=== PATIENT | male | born 1950 | race Caucasian/White ===

== ENCOUNTER 2023-07-21 16:02 | Outpatient (AMB) | payer BC, SELFPAY ==
--- NOTE | 2023-07-21 16:04 | AM.OFFWIN_ITS ---
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) Intake Note: pt is here for c.o body aches, fatigue Patient Tobacco Use Status: Never used Tobacco Allergies amoxicillin [From Augmentin] Allergy (Mild, Verified 07/21/23 16:26) Rash azithromycin Allergy (Mild, Verified 07/21/23 16:26) Rash clavulanic acid [From Augmentin] Allergy (Mild, Verified 07/21/23 16:26) Rash Medication List - Last Reconciled 07/21/23 by Arya Bright MD apixaban (Eliquis) 5 mg PO BID metoprolol succinate ER 25 mg PO DAILY rosuvastatin 10 mg PO BEDTIME Do you need a note to return to daycare/school/sports/work: No 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 Patient is requesting a Covid test. For the past week, he is feeling tired. Lives alone. 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 Does not have any home covid tests and would like to get tested. PFSH Social History Patient Tobacco Use Status: Never used Tobacco Physical Exam Vital Signs: Last Vital Signs Temp 98.4 F 07/21/23 16:11 Pulse 80 07/21/23 16:11 BP 104/62 07/21/23 16:11 Pulse Ox 100 07/21/23 16:11 Oxygen Delivery Method Room Air 07/21/23 16:11 BMI result Body Mass Index 24.0 Const General: cooperative and healthy appearing Nutritional Appearance: well nourished Orientation/consciousness: patient oriented x3 Limitations: no limitations HEENT Head: Yes normal to inspection Eyes General: appearance normal, both eyes and all related structures Neck Neck: Yes normal visual inspection Chest Chest palpation & inspection: normal palpation of entire chest wall Resp Effort & Inspection: normal respiratory effort Neuro General: patient oriented x3 Assessment & Plan Assessment & Plan (1) Upper respiratory tract infection: Code(s): J06.9 - Acute upper respiratory infection, unspecified Plan: No antibiotics needed. Covid testing done as per patients request. Encouraged him to follow up with his PCP. Orders: Orders SARS-CoV2/FLU/RSV Today R43.9 - Unspecified disturbances of smell and taste Coding Level of Care Code New Pt Level 3 (75583) Diagnoses Upper respiratory tract infection J06.9
[2023-07-21 16:11] VITALS: BP 104/62; PULSE 80; TEMP 36.9; O2SAT 100; BMI 24.0
== END 2023-07-21 16:44 | disposition home or self-care (01) ==
PROVIDERS: Visit Provider Internal Medicine
DX: J06.9 Acute upper respiratory infection, unspecified (principal)
CPT/HCPCS: 99203

== ENCOUNTER 2023-07-21 16:42 | Outpatient (REF) | payer BC, SELFPAY ==
[2023-07-22 12:42] LABS: Influenza A PCR NEGATIVE (Negative); Influenza B PCR NEGATIVE (Negative); Resp Syncy Virus RNA Qual PCR NEGATIVE (Negative); SARS COV2 PCR INHOUSE NEGATIVE (Negative)
== END 2023-07-21 16:43 | disposition home or self-care (01) ==
LOC: HO.LAB 16:42
PROVIDERS: Visit Provider Internal Medicine
DX: Z11.52 Encounter for screening for COVID-19 (principal); Z20.822 Contact with and (suspected) exposure to COVID-19; R43.9 Unspecified disturbances of smell and taste
CPT/HCPCS: 0241U